=== PATIENT | male | born 1940 | race Caucasian/White ===

== ENCOUNTER → 2016-10-18 | Outpatient (CLI) | payer MEDICARE ==
[~2016-10-18] MED LIST: ASPI-650 PO; FURO-93 PO; HYDR-3237 PO; LABE100T3 PO; LEVO100T5 PO; OMEP-110 PO; OMNIPAQUE 350 MG/ML, 100ML BOTTLE ONE; SERT100T5 PO; TERA2CAP3 PO
== END | disposition home or self-care (01) ==
LOC: CFH 10:23
PROVIDERS: ATTEND Internal Medicine Cardiovascular Disease
DX: I08.1 Rheumatic disorders of both mitral and tricuspid valves (principal); I50.9 Heart failure, unspecified; I48.91 Unspecified atrial fibrillation; I71.00 Dissection of unspecified site of aorta; K44.9 Diaphragmatic hernia without obstruction or gangrene; J98.6 Disorders of diaphragm; J98.11 Atelectasis; J90 Pleural effusion, not elsewhere classified; Z95.2 Presence of prosthetic heart valve; Z87.891 Personal history of nicotine dependence
CPT/HCPCS: 71275; 82565; 93306; Q9967

== ENCOUNTER 2018-07-31 12:15 | Emergency (ER) | payer MEDICARE ==
[~2018-07-31] VITALS: Ht 177.8 cm; Wt 85.6 kg
[2018-07-31 15:52] VITALS: BP 119/90
== END 2018-07-31 15:55 | disposition home or self-care (01) ==
LOC: ED 13:14
DX: K57.92 Diverticulitis of intestine, part unspecified, without perforation or abscess without bleeding (principal); N28.9 Disorder of kidney and ureter, unspecified; I72.3 Aneurysm of iliac artery; I48.91 Unspecified atrial fibrillation; I11.0 Hypertensive heart disease with heart failure; I50.9 Heart failure, unspecified; F32.9 Major depressive disorder, single episode, unspecified; E78.5 Hyperlipidemia, unspecified; E03.9 Hypothyroidism, unspecified; Z95.1 Presence of aortocoronary bypass graft
CPT/HCPCS: 36415; 74177; 80053; 81003; 83690; 85025; 99284; J7040; Q9967

== ENCOUNTER 2018-12-05 16:55 | Emergency (ER) | payer MEDICARE ==
[~2018-12-05] VITALS: Ht 182.9 cm; Wt 89.1 kg
[~2018-12-05 16:55] MED LIST changes: +FINA5TAB4 PO; -LABE100T3 PO; +LABE100T6 PO; +MULTIVITAMIN; +OMEG1CAP23 PO; -OMNIPAQUE 350 MG/ML, 100ML BOTTLE ONE; +SELE200T17 PO; +SERT100T32 PO; -SERT100T5 PO; +SIMV20TA3 PO; +UBID1CAP43 PO; +VIT C; +[UNRECOGNIZED DRUG - OTHER]; +[UNRECOGNIZED DRUG - OTHER]
--- NOTE | 2018-12-05 17:11 | NUR ---
PT HERE TODAY FOR SOB- STATES HE RECENTLY STARTED TAKING GABAPENTIN AND IS WORRIED HE IS HAVING A REACTION TO IT. STATES HE CALLED HIS PCP WHO TOLD HIM TO COME TO THE ER. PT RESTING ON GURNEY. CONNECTED TO MONITOR. ABLE TO HOLD A CONVERSATION WITHOUT INCREASED RR. STATES HE HAS BEEN VERY DROWSY. STATES HE HAS BEEN HAVING PALPITATIONS. 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 HX OPEN HEART SURGERIES X3.
[2018-12-05] MEDS ORDERED: GABA300C10 PO (17:19)
--- NOTE | 2018-12-05 17:47 | NUR ---
MD AT BEDSIDE TO ASSESS PT NOW.
[2018-12-05] MEDS ORDERED: DIPHENHYDRAMINE 25 MG CAPSULE ONE (18:23)
--- NOTE | 2018-12-05 18:25 | NUR ---
PT MEDICATED PER EMAR. RESTING ON GURNEY. NADN. VSS.
[2018-12-05] MEDS ORDERED: DIPHENHYDRAMINE 25 MG CAPSULE PO ONE (18:30)
[2018-12-05 18:31] LABS: BASOPHILS # (AUTO) 0.03 x10^3/uL (0-0.1); BASOPHILS % (AUTO) 1 % (0-1); EOSINOPHILS # (AUTO) 0.15 x10^3/uL (0-0.4); EOSINOPHILS % (AUTO) 3 % (1-7); LYMPHOCYTES % (AUTO) 20 % (22-44); MD NO; MEAN CORPUSCULAR HGB CONC 33.2 g/dL (33.2-36.2); MEAN CORPUSCULAR VOLUME 96.4 fL (81-97); MEAN PLATELET VOLUME 7.9 fL (7.4-10.4); MONOCYTES # (AUTO) 0.37 x10^3/uL (0.2-0.8); MONOCYTES % (AUTO) 7 % (2-9); NEUTROPHILS # (AUTO) 3.79 x10^3/uL (1.8-6.8); NEUTROPHILS % (AUTO) 70 % (42-75); PLATELET COUNT 135 x10^3/uL (130-400); RED BLOOD COUNT 4.58 x10^6/uL (4.38-5.82)
[2018-12-05 18:37] LABS: ALANINE AMINOTRANSFERASE 35 U/L (12-78); ALBUMIN 4.1 g/dL (3.4-5.0); ANION GAP 7 mmol/L (5-15); CALCIUM 8.6 mg/dL (8.5-10.1); CHLORIDE 110 mmol/L (98-107); CREATININE 1.26 mg/dL (0.7-1.3)
[2018-12-05 18:42] LABS: ALKALINE PHOSPHATASE 136 U/L (45-117); BILIRUBIN,TOTAL 0.5 mg/dL (0.2-1.0); TOTAL PROTEIN 7.5 g/dL (6.4-8.2); TROPONIN I < 0.015 ng/mL (0.000-0.045)
--- NOTE | 2018-12-05 18:53 | NUR ---
REPORT TO JELENA ANTHONY
--- NOTE | 2018-12-05 19:03 | NUR ---
ALL RESULTS BACK, PT [facility] FOR RECHECK
[2018-12-05 20:47] VITALS: BP 111/89
== END 2018-12-05 20:50 | disposition home or self-care (01) ==
LOC: ED 19:07
DX: R00.2 Palpitations (principal); R07.89 Other chest pain; R06.02 Shortness of breath; I11.0 Hypertensive heart disease with heart failure; I50.9 Heart failure, unspecified; E78.5 Hyperlipidemia, unspecified; E03.9 Hypothyroidism, unspecified; F32.9 Major depressive disorder, single episode, unspecified; I48.91 Unspecified atrial fibrillation; Z95.1 Presence of aortocoronary bypass graft
CPT/HCPCS: 36415; 71045; 80053; 83880; 84484; 85025; 93005; 99284; Q0163

== ENCOUNTER 2019-12-08 13:15 | Observation (INO) | payer MEDICARE ==
[~2019-12-08] VITALS: Ht 177.8 cm; Wt 87.6 kg
[~2019-12-08 13:15] MED LIST changes: +GABA300C10 PO; +SIMV20TA19 PO; -SIMV20TA3 PO
--- NOTE | 2019-12-08 13:27 | NUR ---
Pt to room 22, refuses wheelchair.
[2019-12-08] MEDS ORDERED: ASPIRIN 81 MG TABLET CHEW PO ONE (13:30)
[2019-12-08 13:47] LABS: BASOPHILS % (AUTO) 1 % (0-1); EOSINOPHILS % (AUTO) 2 % (1-7); LYMPHOCYTES % (AUTO) 16 % (22-44); MEAN CORPUSCULAR HEMOGLOBIN 31.3 pg (27.5-34.5); MEAN CORPUSCULAR HGB CONC 33.2 g/dL (33.2-36.2); MEAN PLATELET VOLUME 7.5 fL (7.4-10.4); MONOCYTES % (AUTO) 9 % (2-9); NEUTROPHILS % (AUTO) 72 % (42-75); PLATELET COUNT 158 x10^3/uL (130-400); RED BLOOD COUNT 4.99 x10^6/uL (4.38-5.82); RED CELL DISTRIBUTION WIDTH 13.6 % (9.4-14.8)
[2019-12-08 13:51] LABS: MD NO
[2019-12-08 13:58] LABS: ALBUMIN 4.2 g/dL (3.4-5.0); ANION GAP 6 mmol/L (5-15); CALCIUM 9.7 mg/dL (8.5-10.1); CHLORIDE 102 mmol/L (98-107)
[2019-12-08 14:03] LABS: ALANINE AMINOTRANSFERASE 36 U/L (12-78); ALKALINE PHOSPHATASE 85 U/L (45-117); BILIRUBIN,TOTAL 0.9 mg/dL (0.2-1.0); CREATININE 1.61 mg/dL (0.7-1.3); TOTAL PROTEIN 7.6 g/dL (6.4-8.2); TROPONIN I < 0.015 ng/mL (0.000-0.045)
[2019-12-08] MEDS ORDERED: ASPIRIN 81 MG TABLET CHEW ONE (14:23)
[2019-12-08] MEDS ORDERED: OMNIPAQUE 350 MG/ML, 75ML BOTTLE ONE (16:22)
[2019-12-08] MEDS ORDERED: SODIUM CHLORIDE 0.9%, 500ML IVBOLUS ONE (17:00)
[2019-12-08] MEDS ORDERED: BACLOFEN 10 MG TABLET PO PRN (17:30)
[2019-12-08] MEDS ORDERED: LABETALOL 5MG/ML, 20ML IVPush PRN (17:30)
[2019-12-08] MEDS ORDERED: OXYcodone IR 5MG TABLET PO PRN (17:30)
[2019-12-08] MEDS ORDERED: ENALAPRILAT 1.25 MG/ML, 2ML IVPush PRN (17:30)
[2019-12-08] MEDS ORDERED: BUTALB/APAP/CAFFEINE 50MG/325MG/40MG PO PRN (17:30)
[2019-12-08] MEDS ORDERED: ENOXAPARIN 40 MG/0.4 ML SQ SCH (17:30)
[2019-12-08] MEDS ORDERED: GABAPENTIN 300 MG CAPSULE PO PRN (17:30)
[2019-12-08] MEDS ORDERED: ACETAMINOPHEN 325 MG TABLET PO PRN (17:30)
[2019-12-08] MEDS ORDERED: MELATONIN 5 MG TABLET PO PRN (17:30)
[2019-12-08] MEDS ORDERED: GUAIFENESIN/DM 200-20MG, 10ML UDC PO PRN (17:30)
[2019-12-08 18:19] LABS: TROPONIN I < 0.015 ng/mL (0.000-0.045)
[2019-12-08 22:35] VITALS: BP 110/77
[2019-12-08 23:58] LABS: TROPONIN I < 0.015 ng/mL (0.000-0.045)
[2019-12-09 01:43] VITALS: BP 98/57
[2019-12-09 06:29] LABS: BASOPHILS % (AUTO) 1 % (0-1); EOSINOPHILS % (AUTO) 3 % (1-7); LYMPHOCYTES % (AUTO) 22 % (22-44); MEAN CORPUSCULAR HEMOGLOBIN 31.3 pg (27.5-34.5); MEAN CORPUSCULAR HGB CONC 33.5 g/dL (33.2-36.2); MEAN PLATELET VOLUME 8.3 fL (7.4-10.4); MONOCYTES % (AUTO) 10 % (2-9); NEUTROPHILS % (AUTO) 65 % (42-75); PLATELET COUNT 137 x10^3/uL (130-400); RED BLOOD COUNT 4.75 x10^6/uL (4.38-5.82); RED CELL DISTRIBUTION WIDTH 13.2 % (9.4-14.8)
[2019-12-09 06:32] LABS: MD NO
[2019-12-09 06:43] LABS: CHLORIDE 108 mmol/L (98-107)
[2019-12-09 06:57] LABS: ALANINE AMINOTRANSFERASE 28 U/L (12-78); ALBUMIN 3.4 g/dL (3.4-5.0); ALKALINE PHOSPHATASE 81 U/L (45-117); ANION GAP 5 mmol/L (5-15); BILIRUBIN,TOTAL 0.6 mg/dL (0.2-1.0); CREATININE 1.33 mg/dL (0.7-1.3); TOTAL PROTEIN 6.3 g/dL (6.4-8.2)
[2019-12-09 07:12] VITALS: BP 126/79
[2019-12-09] MEDS ORDERED: REGADENOSON 0.4 MG/5 ML SYRINGE ONE (08:40)
[2019-12-09 12:41] VITALS: BP 119/76
[2019-12-09] MEDS ORDERED: BACL-19 PO (14:30)
== END 2019-12-09 16:57 | disposition home or self-care (01) ==
LOC: ED 14:17 → INTOOBSV 16:56 → EDIP 16:56 → 5SO 19:08 → DCLOUNGE 12-09 16:46
PROVIDERS: ADMIT Internal Medicine; ATTEND Internal Medicine
DX: R07.89 Other chest pain (principal); I11.0 Hypertensive heart disease with heart failure; I50.9 Heart failure, unspecified; I25.10 Atherosclerotic heart disease of native coronary artery without angina pectoris; I48.91 Unspecified atrial fibrillation; E78.5 Hyperlipidemia, unspecified; E03.9 Hypothyroidism, unspecified; N40.0 Benign prostatic hyperplasia without lower urinary tract symptoms; Z79.82 Long term (current) use of aspirin; Z79.899 Other long term (current) drug therapy; Z95.0 Presence of cardiac pacemaker; Z95.1 Presence of aortocoronary bypass graft; Z95.2 Presence of prosthetic heart valve
CPT/HCPCS: 36415; 71045; 71275; 78452; 80053; 83735; 83880; 84484; 85025; 85379; 93005; 93017; 96372; 97161; 97165; 99285; A9502; G0378; J1650; J2785; J7040; Q9967

== ENCOUNTER → 2020-08-19 | Outpatient (CLI) | payer MEDICARE ==
[~2020-08-19] MED LIST changes: +APIX5TAB PO; -ASPI-650 PO; +ASPI325T20 PO; +ASPI81TA45 PO; +ATOR20TA37 PO; +BACL-19 PO; +FURO20TA3 PO; +LIDO700A20 TD; +LOSA25TA25 PO; +METO25TA91 PO; +ONDA4TAB13 PO; +SPIR25TA5 PO; +TERA5CAP3 PO
[2020-08-19 13:02] LABS: ALBUMIN 4.1 g/dL (3.4-5.0); ANION GAP 5 mmol/L (5-15); CALCIUM 9.5 mg/dL (8.5-10.1); CHLORIDE 105 mmol/L (98-107)
[2020-08-19 13:06] LABS: ALANINE AMINOTRANSFERASE 50 U/L (12-78); ALKALINE PHOSPHATASE 125 U/L (45-117); CREATININE 1.42 mg/dL (0.7-1.3); TOTAL PROTEIN 7.5 g/dL (6.4-8.2)
== END | disposition home or self-care (01) ==
LOC: STAR 10:21
PROVIDERS: ATTEND Thoracic Surgery (Cardiothoracic Vascular Surgery)
DX: Z01.818 Encounter for other preprocedural examination (principal); K44.9 Diaphragmatic hernia without obstruction or gangrene; Z20.822 Contact with and (suspected) exposure to COVID-19
CPT/HCPCS: 36415; 80053; 93005; U0003; U0005

== ENCOUNTER 2020-08-25 06:48 | Observation (INO) | payer MEDICARE ==
[~2020-08-25] VITALS: Ht 177.8 cm; Wt 88.2 kg
[2020-08-25] MEDS ORDERED: BUPIVACAINE/PF 0.5% ONE (06:58)
[2020-08-25] MEDS ORDERED: EPINEPHRINE 1 MG/ML, 1ML ONE (06:58)
[2020-08-25] MEDS ORDERED: vit d3 PO (07:35)
[2020-08-25 07:38] VITALS: BP 83/41
[2020-08-25] MEDS ORDERED: CHLORHEXIDINE 15 ML UDC PO ONE (08:00)
[2020-08-25] MEDS ORDERED: LACTATED RINGERS 1,000 ML IV SCH (08:00)
[2020-08-25] MEDS ORDERED: FENTANYL PF 250 MCG/5ML ONE (08:04)
[2020-08-25] MEDS ORDERED: MIDAZOLAM 1 MG/ML, 2ML ONE (08:04)
[2020-08-25] MEDS ORDERED: ROCURONIUM 10MG/ML,5ML ONE (08:07)
[2020-08-25] MEDS ORDERED: CEFAZOLIN 1,000 MG ONE ×2 (08:07)
[2020-08-25] MEDS ORDERED: LIDOCAINE-MPF 2% ,5ML ONE (08:07)
[2020-08-25] MEDS ORDERED: ONDANSETRON 2MG/ML, 2ML ONE ×2 (08:07→11:32)
[2020-08-25] MEDS ORDERED: PROPOFOL 10 MG/ML, 20ML ONE (08:07)
[2020-08-25] MEDS ORDERED: MEPERIDINE/PF 25MG/0.5ML IVPush PRN (09:30)
[2020-08-25] MEDS ORDERED: HYDROmorphone 1 MG/ML, 1ML INJ IVPush PRN (09:30)
[2020-08-25] MEDS ORDERED: OXYcodone 5 MG/5 ML ORAL.SOL UDC PO PRN (09:30)
[2020-08-25] MEDS ORDERED: LABETALOL 5MG/ML, 20ML IV PRN (09:30)
[2020-08-25] MEDS ORDERED: hydrALAzine 20 MG/ML, 1ML IV PRN ×2 (09:30→11:30)
[2020-08-25] MEDS ORDERED: BUPIVACAINE/PF-EPI 0.5% 1:200K INFIL ONE (09:39)
[2020-08-25] MEDS ORDERED: NEOSTIGMINE 1 MG/ML, 10ML ONE (11:08)
[2020-08-25] MEDS ORDERED: GLYCOPYRROLATE 0.2MG/1ML, 5ML ONE (11:08)
[2020-08-25] MEDS ORDERED: ACETAMINOPHEN 650 MG SUPP PR PRN (11:30)
[2020-08-25] MEDS: LACTATED RINGERS 1,000 ML IV SCH ×3 (11:30→22:08)
[2020-08-25] MEDS ORDERED: ENALAPRILAT 1.25 MG/ML, 2ML IV PRN (11:30)
[2020-08-25] MEDS ORDERED: ACETAMINOPHEN 650 MG/20.3 ML UDC PO PRN (11:30)
[2020-08-25] MEDS ORDERED: ONDANSETRON 2MG/ML, 2ML IVPush PRN (11:30)
[2020-08-25] MEDS ORDERED: FENTANYL PF 100 MCG/2ML ONE (11:32)
[2020-08-25] MEDS: ONDANSETRON 2MG/ML, 2ML IVPush PRN ×2 (11:35→15:37)
[2020-08-25] MEDS: FENTANYL PF 100 MCG/2ML IV PRN ×2 (11:36→11:49)
[2020-08-25] MEDS ORDERED: DIAZEPAM 5 MG/ML, 2ML ONE (11:39)
[2020-08-25] MEDS: DIAZEPAM 5 MG/ML, 2ML IVPush PRN ×2 (11:42→12:20)
[2020-08-25] MEDS ORDERED: OXYcodone 5 MG/5 ML ORAL.SOL UDC ONE (12:02)
[2020-08-25] MEDS ORDERED: HYDROmorphone 1 MG/ML, 1ML INJ ONE (12:02)
[2020-08-25] MEDS ORDERED: METHOCARBAMOL 1,000 MG in DEXTROSE 5% 100 ML IV ONE (12:30)
[2020-08-25] MEDS ORDERED: HYDR15SO3 PO (12:46)
[2020-08-25 13:40] VITALS: BP 125/69
[2020-08-25] MEDS: HYDROcodone/APAP 7.5-325MG/15ML UDC PO PRN ×4 (13:58→23:58)
[2020-08-25 19:22] VITALS: BP 135/78
[2020-08-25] MEDS ORDERED: LACTATED RINGERS 500 ML IVBOLUS ONE (19:30)
[2020-08-25] MEDS: FAMOTIDINE 20 MG/2 ML IV SCH (19:48)
[2020-08-25] MEDS: morphine SULFATE 10 MG/ML, 1ML IV PRN ×2 (22:16→22:33)
[2020-08-26 00:33] VITALS: BP 117/69
[2020-08-26 04:02] VITALS: BP 95/63
[2020-08-26] MEDS: HYDROcodone/APAP 7.5-325MG/15ML UDC PO PRN ×2 (04:05→09:54)
[2020-08-26] MEDS: LACTATED RINGERS 1,000 ML IV SCH (05:30)
[2020-08-26] MEDS: LEVOTHYROXINE 100 MCG TABLET PO SCH (05:39)
[2020-08-26 07:11] VITALS: BP 100/59
[2020-08-26] MEDS: SERTRALINE 100MG TABLET PO SCH (08:46)
[2020-08-26] MEDS: METOPROLOL SUCCINATE 25 MG TAB.ER.24H PO SCH (08:47)
[2020-08-26] MEDS: LOSARTAN 25MG TABLET PO SCH (08:47)
[2020-08-26] MEDS: ENOXAPARIN 40 MG/0.4 ML SQ SCH (08:47)
[2020-08-26] MEDS: FAMOTIDINE 20 MG/2 ML IV SCH (08:47)
[2020-08-26] MEDS ORDERED: KETOROLAC 30 MG/1 ML IM PRN (09:30)
[2020-08-26] MEDS: morphine SULFATE 10 MG/ML, 1ML IV PRN (11:02)
[2020-08-26 14:40] VITALS: BP 101/63
[2020-08-26 19:54] VITALS: BP 108/70
[2020-08-26] MEDS ORDERED: FAMOTIDINE 20 MG/2 ML IV SCH (21:00)
[2020-08-27 01:58] VITALS: BP 102/63
[2020-08-27] MEDS: HYDROcodone/APAP 7.5-325MG/15ML UDC PO PRN (02:02)
[2020-08-27] MEDS: LEVOTHYROXINE 100 MCG TABLET PO SCH (05:52)
[2020-08-27 07:09] VITALS: BP 134/79
[2020-08-27] MEDS: LOSARTAN 25MG TABLET PO SCH (08:28)
[2020-08-27] MEDS: SERTRALINE 100MG TABLET PO SCH (08:28)
[2020-08-27] MEDS: METOPROLOL SUCCINATE 25 MG TAB.ER.24H PO SCH (08:28)
[2020-08-27] MEDS: ENOXAPARIN 40 MG/0.4 ML SQ SCH (08:28)
[2020-08-27] MEDS ORDERED: DOCUSATE 100 MG CAPSULE PO SCH (10:00)
== END 2020-08-27 13:15 | disposition home or self-care (01) ==
LOC: OUT 06:48 → 4NE 13:08 → DCLOUNGE 08-27 12:58
PROVIDERS: ADMIT Thoracic Surgery (Cardiothoracic Vascular Surgery); ATTEND Thoracic Surgery (Cardiothoracic Vascular Surgery)
DX: K44.9 Diaphragmatic hernia without obstruction or gangrene (principal); R33.9 Retention of urine, unspecified; I10 Essential (primary) hypertension; E03.9 Hypothyroidism, unspecified; E78.5 Hyperlipidemia, unspecified; I72.3 Aneurysm of iliac artery; Z95.0 Presence of cardiac pacemaker; Z95.1 Presence of aortocoronary bypass graft; Z79.899 Other long term (current) drug therapy
CPT/HCPCS: 43282; 96361; 96372; 96374; 96375; 96376; C1781; G0378; J0171; J0690; J1170; J1650; J1885; J2250; J2270; J2405; J2704; J2710; J2800; J3010; J3360; J3490; J7120; S0020

== ENCOUNTER 2020-08-31 12:36 | Emergency (ER) | payer MEDICARE ==
[~2020-08-31] VITALS: Ht 177.8 cm; Wt 87.6 kg
[~2020-08-31 12:36] MED LIST changes: +HYDR15SO3 PO; +vit d3 PO
[2020-08-31 13:33] LABS: BASOPHILS % (AUTO) 1 % (0-1); EOSINOPHILS % (AUTO) 2 % (1-7); LYMPHOCYTES % (AUTO) 10 % (22-44); MEAN CORPUSCULAR HEMOGLOBIN 32.4 pg (27.5-34.5); MEAN CORPUSCULAR HGB CONC 33.8 g/dL (33.2-36.2); MONOCYTES % (AUTO) 12 % (2-9); NEUTROPHILS % (AUTO) 75 % (42-75); PLATELET COUNT 207 x10^3/uL (130-400); RED BLOOD COUNT 3.73 x10^6/uL (4.38-5.82); RED CELL DISTRIBUTION WIDTH 14.1 % (9.4-14.8)
[2020-08-31 13:43] LABS: ALBUMIN 3.3 g/dL (3.4-5.0); ANION GAP 2 mmol/L (5-15); CALCIUM 9.3 mg/dL (8.5-10.1); CHLORIDE 109 mmol/L (98-107)
[2020-08-31 13:48] LABS: CREATININE 1.23 mg/dL (0.7-1.3)
[2020-08-31 13:49] LABS: TROPONIN I < 0.015 ng/mL (0.000-0.045)
--- NOTE | 2020-08-31 14:37 | NUR ---
PT TAKEN TO CT AT THIS TIME.
--- NOTE | 2020-08-31 14:43 | NUR ---
REPORT RECEIVED FROM DAYTON BOWLES, PT CARE TRANSFERRED AT THIS TIME. PT AT CT CURRENTLY.
[2020-08-31] MEDS ORDERED: OMNIPAQUE 350 MG/ML, 100ML BOTTLE ONE (14:56)
--- NOTE | 2020-08-31 16:09 | NUR ---
pt resting on gurney, nad, appears comfortable, vss, no changes in condition, eyes closed, bed in lowest, rails engaged, call light on lap, wctm.
--- NOTE | 2020-08-31 17:40 | NUR ---
Patient/Friends given discharge instructions and they have confirmed that they understand the instructions. Patient ambulatory with steady gait. NAD, all questions answered appropriately, denies additional needs at this time. No personal belongings left in room after discharge.
[2020-08-31 17:45] VITALS: BP 114/72
== END 2020-08-31 17:47 | disposition home or self-care (01) ==
LOC: ED 14:59
DX: G89.18 Other acute postprocedural pain (principal); R10.9 Unspecified abdominal pain; R07.89 Other chest pain; R53.1 Weakness; R06.02 Shortness of breath; I10 Essential (primary) hypertension; I48.91 Unspecified atrial fibrillation
CPT/HCPCS: 36415; 71045; 71275; 80048; 82040; 83880; 84484; 85025; 93005; 99285; Q9967